=== PATIENT | female | born 1995 | race Caucasian/White ===

== ENCOUNTER 2020-10-10 14:39 | Emergency (ER) | payer OTHER ==
[~2020-10-10 14:39] MED LIST: COLACE 100MG C100 MG PO; IBUPROFEN600 MG PO; TRANDATE 100 M100 MG PO
[2020-10-10 17:42] LABS: HEMOGLOBIN 14.2 gm/dl (12.3-15.3); RED BLOOD COUNT 4.36 M/UL (4.00-5.10); WHITE BLOOD COUNT 7.7 K/UL (4.5-11.0)
[2020-10-10 17:58] LABS: BUN/CREATININE RATIO 21 (0-10)
[2020-10-10] MEDS ORDERED: IBUPROFEN600 MG PO (20:07)
[2020-10-10] MEDS ORDERED: ZOFRAN4 MG PO (20:07)
[2020-10-10] MEDS ORDERED: DOXYCYCLINE HY100 M2 PO (20:07)
[2020-10-13 23:10] LABS: CHLAMYDIA TRACHOMATIS, NAA Negative (Negative); NEISSERIA GONORRHOEAE, NAA Negative (Negative)
== END 2020-10-10 20:40 | disposition home or self-care (01) ==
LOC: ER1 14:39
PROVIDERS: Physician Assistant Medical
DX: N73.9 Female pelvic inflammatory disease, unspecified (principal); N83.202 Unspecified ovarian cyst, left side; Z87.42 Personal history of other diseases of the female genital tract
CPT/HCPCS: 80053; 81001; 84703; 85025; 85652; 86140; 87210; 96365; 99284; Q9967

== ENCOUNTER → 2021-10-29 | Outpatient (CLI) | payer OTHER ==
[~2021-10-29] MED LIST changes: +DOXYCYCLINE HY100 M2 PO; +ZOFRAN4 MG PO
== END ==
LOC: KOH-I 10:45
DX: M25.561 Pain in right knee (principal)
CPT/HCPCS: 73564